=== PATIENT | female | born 1995 | race American Indian/Alaskan Native ===

== ENCOUNTER 2019-07-16 17:20 | Outpatient (CLI) | payer MEDICAID ==
[2019-07-16 17:35] VITALS: BP 125/74
[2019-07-16] MEDS ORDERED: LACTATED RINGERS 1,000 ML IV SCH (18:00)
[2019-07-16 18:55] LABS: Bilirubin,Urine Negative (Negative); Color,Urine Yellow (Yellow)
[2019-07-16 18:56] LABS: Blood,Urine Negative (Negative); Protein,Urine <15 mg/dL mg/dL (Negative)
[2019-07-16 18:57] LABS: Bacteria,Urine 1+ /HPF (Negative); Mucus,Urine FEW /HPF
[2019-07-16 19:09] LABS: Amphetamine Screen,Urine PRESUMPTIVE NEGATIVE; Benzodiazepines Screen,Urine PRESUMPTIVE NEGATIVE; Cannabinoid Screen,Urine PRESUMPTIVE POSITIVE; Cocaine Screen,Urine PRESUMPTIVE NEGATIVE; Methadone Screen,Urine PRESUMPTIVE NEGATIVE; Opiate Screen,Urine PRESUMPTIVE NEGATIVE
== END 2019-07-16 18:40 | disposition home or self-care (01) ==
LOC: TRG 17:20
PROVIDERS: ATTEND Obstetrics & Gynecology
DX: O47.02 False labor before 37 completed weeks of gestation, second trimester (principal); Z3A.12 12 weeks gestation of pregnancy
CPT/HCPCS: 80307; 81001

== ENCOUNTER 2021-09-18 15:11 | Outpatient (CLI) | payer MEDICAID ==
[2021-09-18] MEDS ORDERED: LACTATED RINGERS 1,000 ML IV ONE (15:48)
[2021-09-18 15:56] VITALS: BP 100/56
[2021-09-18 16:01] LABS: Bilirubin,Urine NEG (Negative); Blood,Urine NEG (Negative); Color,Urine Yellow (Yellow); Mucus,Urine FEW /HPF; Protein,Urine <15 mg/dL mg/dL (Negative); Urobilinogen,Urine < 2.0 mg/dL (<2.0)
[2021-09-18 16:10] LABS: Amphetamine Screen,Urine Negative; Benzodiazepines Screen,Urine Negative; Cocaine Screen,Urine Negative; Methadone Screen,Urine Negative; Opiate Screen,Urine Negative
[2021-09-18 16:49] LABS: Cannabinoid Screen,Urine Positive
== END 2021-09-18 17:22 | disposition home or self-care (01) ==
LOC: TRG 15:11 → APU 15:13 → TRG 17:22
PROVIDERS: ATTEND Obstetrics & Gynecology
DX: O26.892 Other specified pregnancy related conditions, second trimester (principal); R10.9 Unspecified abdominal pain; Z3A.21 21 weeks gestation of pregnancy
CPT/HCPCS: 80307; 81001

== ENCOUNTER 2021-12-21 16:33 | Outpatient (CLI) | payer MEDICAID ==
[2021-12-21 17:15] VITALS: BP 116/58
[2021-12-21] MEDS ORDERED: LACTATED RINGERS 500 ML IV ONE (18:24)
[2021-12-21 19:02] LABS: Bilirubin,Urine Negative (Negative); Blood,Urine Trace (Negative); Color,Urine Yellow (Yellow); Urobilinogen,Urine < 2.0 mg/dL (<2.0)
[2021-12-21 19:09] LABS: Bacteria,Urine 1+ /HPF (Negative); Mucus,Urine 2+ /HPF
== END 2021-12-21 19:45 | disposition home or self-care (01) ==
LOC: TRG 16:33 → APU 16:35 → TRG 19:39
PROVIDERS: ATTEND Obstetrics & Gynecology
DX: O47.03 False labor before 37 completed weeks of gestation, third trimester (principal); Z3A.35 35 weeks gestation of pregnancy
CPT/HCPCS: 36415; 81001; 84112

== ENCOUNTER 2022-01-17 07:51 | Inpatient (IN) | payer MEDICAID ==
[2022-01-17 08:55] LABS: Amphetamine Screen,Urine Negative; Benzodiazepines Screen,Urine Negative; Cannabinoid Screen,Urine Negative; Methadone Screen,Urine Negative; Opiate Screen,Urine Negative
[2022-01-17 09:08] LABS: Bacteria,Urine 1+ /HPF (Negative); Bilirubin,Urine NEG (Negative); Blood,Urine MOD (Negative); Color,Urine Yellow (Yellow); Urobilinogen,Urine < 2.0 mg/dL (<2.0)
[2022-01-17 09:18] LABS: Cocaine Screen,Urine Positive
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
[2022-01-17 09:59] LABS: Hematocrit 31.9 % (30.3-42.9); Hemoglobin 10.7 gm/dl (10.1-14.3); Mean Corpuscular HGB Conc 34 % (30-34); Mean Corpuscular Volume 97 fl (79-97); Platelet Count 209 K/mm3 (140-440); Red Blood Count 3.28 M/mm3 (3.65-5.03); Red Cell Distribution Width 13.7 % (13.2-15.2)
[2022-01-17] MEDS ORDERED: ONDANSETRON 4 MG/2 ML INJ IV PRN ×2 (10:00→15:47)
[2022-01-17] MEDS ORDERED: METHYLERGONOVINE MALEATE 0.2 MG/ML VIAL IM PRN (10:00)
[2022-01-17] MEDS ORDERED: PROMETHAZINE 25 MG TAB PO PRN ×2 (10:00→15:47)
[2022-01-17] MEDS ORDERED: PENICILLIN G POTASSIUM 5 MIL.UNITS in SODIUM CHLORIDE 0.9% 50 ML IV ONE (10:00)
[2022-01-17] MEDS ORDERED: LIDOCAINE (2%) 20 MG/1 ML VIAL 20 ML MDV INFILTRATI NR (10:00)
[2022-01-17] MEDS ORDERED: TERBUTALINE 1 MG/1 ML INJ SUB-Q PRN (10:00)
[2022-01-17] MEDS ORDERED: LACTATED RINGERS 1,000 ML IV SCH (10:00)
[2022-01-17] MEDS ORDERED: OXYTOCIN DRIP 30 UNITS/500 ML BAG IV SCH (10:00)
[2022-01-17] MEDS ORDERED: ACETAMINOPHEN 325 MG TAB PO PRN ×2 (10:00→15:47)
[2022-01-17] MEDS ORDERED: miSOPROStol 200 MCG TAB PR PRN (10:00)
[2022-01-17] MEDS ORDERED: ePHEDrine SULFATE 50 MG/1 ML INJ IV PRN ×2 (10:00→13:00)
[2022-01-17] MEDS ORDERED: BETAMET ACET/BETAMET NA PH 6 MG/ML INJ 5 ML MDV IM NR (10:00)
[2022-01-17] MEDS ORDERED: CARBOPROST TROMETHAMINE 250 MCG/1 ML INJ IM PRN (10:00)
[2022-01-17] MEDS ORDERED: OXYTOCIN 10 UNIT/1 ML INJ IM PRN (10:00)
[2022-01-17] MEDS ORDERED: LOPERAMIDE 2 MG CAP PO PRN (10:00)
[2022-01-17] MEDS ORDERED: NalbUPHINE 10 MG/1 ML INJ IV PRN (10:00)
[2022-01-17] MEDS ORDERED: fentaNYL 100 MCG/2 ML INJ IV PRN (10:00)
[2022-01-17] MEDS ORDERED: fentaNYL-BUPIV 2 MCG/ML-0.125% 200 MCG/100 ML BAG EPIDURAL SCH (13:00)
[2022-01-17] MEDS ORDERED: NALOXONE 2 MG/2 ML INJ IV PRN (13:00)
--- NOTE | 2022-01-17 13:30 | Anesthesia Consultation ---
Anesthesia Consult and Med Hx Date of service: 01/17/22 - Airway Anesthetic Teeth Evaluation: Poor ROM Head & Neck: Adequate Mental/Hyoid Distance: Adequate Mallampati Class: Class II Intubation Access Assessment: Probably Good - Pulmonary Exam CTA: Yes - Cardiac Exam Cardiac Exam: RRR - Pre-Operative Health Status ASA Pre-Surgery Classification: ASA3 Proposed Anesthetic Plan: Epidural - Pulmonary Hx Smoking: No Hx Asthma: No COPD: No Hx Pneumonia: No - Cardiovascular System Hx Hypertension: No - Central Nervous System Hx Seizures: No Hx Psychiatric Problems: No - Gastrointestinal Hx Gastroesophageal Reflux Disease: Yes - Endocrine Hx Renal Disease: No Hx End Stage Renal Disease: No Hx Hypothyroidism: No Hx Hyperthyroidism: No - Hematic Hx Anemia: Yes Hx Sickle Cell Disease: No - Other Systems Hx Alcohol Use: No Hx Substance Use: Yes (cocaine screening positive)
--- NOTE | 2022-01-17 13:32 | Progress Note ---
Labor Epidural - Labor Epidural Start Time: 12:50 Stop Time: 13:11 Performed by:: HUMBERTO ALARCON Procedure: Patient is requesting epidural for labor pain. H&P and labs reviewed. Procedure explained, questions answered, consent obtained. Patient placed in sitting position with monitors applied. Timeout performed immediately before start of procedure. Prep/drape in usual sterile fashion. Skin localized 3 mL 1% lidocaine at L[3]-L[4] interspace. 17-gauge Touhy epidural needle advanced to GREG with saline at [6] cm. No blood/CSF noted via epidural needle. Epidural catheter advanced to [10] cm. Negative aspiration for blood and CSF via catheter, negative response to test dose 3 ml 1.5% lidocaine w/ Epi. Sterile dressing applied followed by tape reinforcement. Patient tolerated procedure well. No immediate complications noted.
--- NOTE | 2022-01-17 13:40 | Procedure Note ---
OB Delivery Note - Delivery Date of Delivery: 01/17/22 Surgeon: NINO WANG Estimated blood loss: 100cc - Vaginal Delivery presentation: vertex Delivery position: OP Intrapartum events: labor-<37 weeks, PROM->1hr before delivery, precipitous labor- <3hr, mult.variable deceleratio Delivery monitor: external FHT, external uterine Route of delivery: Delivery placenta: spontaneous Delivery cord: 3 umbilical vessels Episiotomy: none Delivery laceration: 1st degree (to bilateral labia) Delivery repair: chromic Anesthesia: epidural Delivery comments: Nurse called me with pelvic unchanged and order given to get epidural. When I entered the room pt receiving epidural and after pt layed flat, I repeated pelvic exam and same with cervix complete, 100% and +3 station. Pt instructed to push and pt given oxygen via face mask. NICU called for delivery. Successful of viable male infant; spontaneous delivery of intact placenta with 3vessel cord. Sustained 1st degree laceration to left and right labia and same repaired with 2-0 chromic continuously with epidural in progress and with good effect. Bimanual with fundus firm. SSE showed no cervical or vaginal laceration. NICU team notified by me that pt was positive for cocaine. - Infant A at 1 minute: 8 at 5 minutes: 9 Infant Gender: Male (slimy clear amniotic fluid, normal wbc on labs; wt 2540g)
[2022-01-17] MEDS ORDERED: IBUPROFEN 800 MG TAB PO ONE (13:45)
[2022-01-17] MEDS ORDERED: PROMETHAZINE 25 MG RECT SUPP PR PRN (15:47)
[2022-01-17] MEDS ORDERED: diphenhydrAMINE 25 MG CAP PO PRN (15:47)
[2022-01-17] MEDS ORDERED: LANOLIN/ZINC/DIMETHICONE (LANSINOH) 7 GM TP PRN (15:47)
[2022-01-17] MEDS ORDERED: MAGNESIUM HYDROXIDE (MOM) ORAL LIQD UDC PO PRN (15:47)
[2022-01-17] MEDS ORDERED: oxyCODONE /ACETAMINOPHEN 5-325MG TAB PO PRN (15:47)
[2022-01-17] MEDS ORDERED: BENZOCAINE/MENTHOL 20/0.5% TOP SPRAY 56 GM TP PRN (15:47)
[2022-01-17] MEDS ORDERED: WITCH HAZEL/ GLYCERIN PAD TP PRN (15:47)
--- NOTE | 2022-01-17 16:21 | Ultrasound Report ---
ULTRASOUND OBSTETRIC INDICATION / CLINICAL INFORMATION: PREVIOUS C/SECTION, - GESTATIONAL AGE. TECHNIQUE: Transabdominal. COMPARISON: None available. FINDINGS: There is a single intrauterine . Biparietal Diameter = 8.5 cm = 34.1 weeks.days Head Circumference = 31.2 cm = 35.0 weeks.days Abdominal Circumference = 31.2 cm = 35.1 weeks.days Femur Length = 6.7 cm = 34.3 weeks.days Average Ultrasound Age (AUA) = 34.5 weeks.days Heart Rate: 122 beats per minute. Estimated Weight in grams (if calculated): 2523 Estimated Weight Growth Percentile (if calculated): 2 Position: cephalic. Amniotic Fluid Volume: normal Amniotic Fluid Index (ARMAAN) in cm (if calculated): 13.3. Maternal Adnexa: No significant abnormality. IMPRESSION: 1. Single, living intrauterine with estimated sonographic age of 34.5 weeks.days 2. No significant sonographic abnormality. Signer Name: David Stallworth MD Signed: 01/17/2022 4:16 PM Workstation Name: [id number]
[2022-01-17] MEDS ORDERED: MINERAL OIL 30 ML ORAL LIQD PO PRN (22:00)
[2022-01-17] MEDS: IBUPROFEN 800 MG TAB PO SCH (22:02)
[2022-01-17] MEDS: DOCUSATE SODIUM 100 MG CAP PO SCH (22:02)
[2022-01-17 23:55] LABS: Hepatitis C Virus Antibody Non-Reactive (NonReactive)
[2022-01-18 02:23] LABS: Hematocrit 31.2 % (30.3-42.9); Hemoglobin 10.5 gm/dl (10.1-14.3)
[2022-01-18] MEDS: IBUPROFEN 800 MG TAB PO SCH ×3 (05:44→21:30)
--- NOTE | 2022-01-18 09:01 | Post Anesthesia Evaluation ---
- Post Anesthesia Evaluation Patient Participated: Yes Airway Patent: Yes Stable Respiratory Function: Yes Nausea/Vomiting: No Temp > 96.8F: Yes Pain Manageable: Yes Adequeate Hydration: Yes Anesthesia Complications: No Block Receding Appropriately: Yes Patient on Ventilator: No
--- NOTE | 2022-01-18 10:40 | Progress Note ---
Assessment and Plan A: PP Day #1 Stable +UDS P: Follow Routine Orders Ammonia Solution Preparer Consult Subjective - Subjective Date of service: 01/18/22 Patient reports: appetite normal, voiding normally, pain well controlled, flatus, ambulating normally Mina: in NICU, bottle feeding Objective - Vital Signs Latest vital signs: Vital Signs Temp Pulse Resp BP BP Pulse Ox Pulse Ox 01/18/22 08:05 100 01/18/22 08:03 97.9 F 65 16 113/72 100 01/18/22 06:44 18 01/18/22 05:44 18 01/18/22 01:18 98.2 F 71 20 128/68 100 01/17/22 23:02 18 01/17/22 22:02 18 01/17/22 22:00 98.0 F 68 20 104/76 100 01/17/22 20:20 100 01/17/22 15:15 97.5 F L 61 14 123/73 99 99 01/17/22 14:23 55 L 100 01/17/22 14:18 55 L 100 01/17/22 14:14 53 L 121/71 01/17/22 14:13 59 L 100 01/17/22 14:08 66 99 01/17/22 14:03 61 99 01/17/22 13:59 63 117/58 01/17/22 13:58 61 99 01/17/22 13:53 58 L 100 01/17/22 13:48 80 100 01/17/22 13:45 72 119/59 01/17/22 13:43 67 100 01/17/22 13:38 59 L 100 01/17/22 13:33 68 100 01/17/22 13:32 97.5 F L 63 20 92 01/17/22 13:29 87 116/74 01/17/22 13:28 70 100 01/17/22 13:23 77 100 01/17/22 13:18 62 100 01/17/22 13:13 75 110/55 100 01/17/22 13:12 93 H 108/72 01/17/22 13:11 63 88 01/17/22 13:09 77 109/53 01/17/22 13:08 67 100 01/17/22 13:04 77 131/60 01/17/22 13:03 71 100 01/17/22 13:01 85 115/60 01/17/22 12:59 76 143/62 01/17/22 12:58 80 100 01/17/22 12:53 75 100 01/17/22 12:52 71 90 01/17/22 12:48 82 100 01/17/22 12:47 77 139/79 01/17/22 12:45 85 92 01/17/22 12:43 84 100 01/17/22 12:38 87 100 01/17/22 12:32 73 100 01/17/22 12:27 77 100 01/17/22 12:22 89 100 01/17/22 12:17 79 100 01/17/22 12:12 67 100 01/17/22 12:07 85 100 01/17/22 12:02 76 99 01/17/22 11:57 78 100 01/17/22 11:52 84 99 01/17/22 11:49 98.6 F 20 01/17/22 11:47 65 102/55 100 01/17/22 11:42 69 100 01/17/22 11:40 100 01/17/22 11:37 73 99 01/17/22 11:32 67 100 01/17/22 11:27 73 100 01/17/22 11:22 77 100 01/17/22 11:17 73 100 01/17/22 11:12 71 100 01/17/22 11:07 67 100 Intake and Output 01/17/22 01/18/22 01/18/22 22:59 06:59 14:59 Intake Total 720 360 Output Total 1400 Balance -680 360 Intake: Oral 720 Intake, Free Water 360 Output: Urine 1400 Indwelling Catheter 900 Void 500 Other: Total, Intake Amount 480 Total, Output Amount 200 - Exam Breasts: Present: normal Cardiovascular: Present: Regular rate Lungs: Present: Clear to auscultation, Normal air movement Abdomen: Present: normal appearance, soft, normal bowel sounds Uterus: Present: normal, firm, fundal height below umbilicus Extremities: Present: normal
[2022-01-18] MEDS: DOCUSATE SODIUM 100 MG CAP PO SCH ×2 (12:20→21:31)
[2022-01-18] MEDS: PRENATAL VIT27-FE FUMARATE-FOLIC ACID VIT TAB PO SCH (12:20)
[2022-01-18 12:53] LABS: Amphetamine Screen,Urine Negative; Benzodiazepines Screen,Urine Negative; Cocaine Screen,Urine Negative; Methadone Screen,Urine Negative; Opiate Screen,Urine Negative
[2022-01-18 13:12] LABS: Cannabinoid Screen,Urine Positive
[2022-01-18] MEDS ORDERED: MEASLES, MUMPS & RUBELLA 12,500 UNIT/0.5 ML VACCINE SUB-Q ONE (13:41)
[2022-01-18] MEDS ORDERED: TETANUS,DIPH,PERTUSS(ACELL) VACCINE 0.5 ML SYRINGE IM ONE (13:48)
[2022-01-19] MEDS: IBUPROFEN 800 MG TAB PO SCH ×3 (05:25→18:22)
[2022-01-19] MEDS: DOCUSATE SODIUM 100 MG CAP PO SCH ×2 (09:45→22:43)
[2022-01-19] MEDS: PRENATAL VIT27-FE FUMARATE-FOLIC ACID VIT TAB PO SCH (09:45)
[2022-01-19] MEDS: FERROUS SULFATE 325 MG TAB PO SCH ×2 (09:45→22:02)
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
[2022-01-19] MEDS: SERTRALINE 25 MG TAB PO SCH (16:15)
[2022-01-19] MEDS ORDERED: traZODone 50 MG TAB PO SCH (22:00)
[2022-01-20] MEDS: IBUPROFEN 800 MG TAB PO SCH ×2 (01:29→06:47)
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
[2022-01-20] MEDS: SERTRALINE 25 MG TAB PO SCH (10:18)
[2022-01-20] MEDS: FERROUS SULFATE 325 MG TAB PO SCH (10:18)
[2022-01-20] MEDS: DOCUSATE SODIUM 100 MG CAP PO SCH (10:18)
[2022-01-20] MEDS: PRENATAL VIT27-FE FUMARATE-FOLIC ACID VIT TAB PO SCH (10:18)
[2022-01-20 13:26] VITALS: BP 121/72
[2022-01-22 19:11] LABS: HIV-1 RNA QN PCR Not Detected Copies/mL; HIV-1 RNA QN PCR Not Detected Log cps/mL
== END 2022-01-20 13:00 | disposition home or self-care (01) | DRG 775 ==
LOC: TRG 07:51 → APU 07:53 → UNDOADMOB 09:40 → LD 09:40 → TRG 12:51 → INTOOBSV 13:40 → OBSVTOIN 13:40 → LD 15:19 → OB 15:19 → LD 15:47 → OBSVTOIN 15:47 → OB 15:47
PROVIDERS: ADMIT Obstetrics & Gynecology; ATTEND Obstetrics & Gynecology
PROC: 10E0XZZ Delivery of Products of Conception, External Approach (ICD-10-PCS; principal; 2022-01-17)
PROC: 3E0R3BZ Introduction of Anesthetic Agent into Spinal Canal, Percutaneous Approach (ICD-10-PCS; 2022-01-17)
PROC: 00HU33Z Insertion of Infusion Device into Spinal Canal, Percutaneous Approach (ICD-10-PCS; 2022-01-17)
PROC: 0HQ9XZZ Repair Perineum Skin, External Approach (ICD-10-PCS; 2022-01-17)
PROC: 3E0234Z Introduction of Serum, Toxoid and Vaccine into Muscle, Percutaneous Approach (ICD-10-PCS; 2022-01-18)
PROC: 0UQMXZZ Repair Vulva, External Approach (ICD-10-PCS; 2022-01-18)
DX: O42.013 Preterm premature rupture of membranes, onset of labor within 24 hours of rupture, third trimester (principal); O76 Abnormality in fetal heart rate and rhythm complicating labor and delivery; O34.211 Maternal care for low transverse scar from previous cesarean delivery; O99.824 Streptococcus B carrier state complicating childbirth; O60.14X0 Preterm labor third trimester with preterm delivery third trimester, not applicable or unspecified; O99.62 Diseases of the digestive system complicating childbirth; K21.9 Gastro-esophageal reflux disease without esophagitis; O62.3 Precipitate labor; O70.0 First degree perineal laceration during delivery; O90.81 Anemia of the puerperium; O99.345 Other mental disorders complicating the puerperium; F53.0 Postpartum depression; O99.324 Drug use complicating childbirth; F14.90 Cocaine use, unspecified, uncomplicated; F12.90 Cannabis use, unspecified, uncomplicated; F41.1 Generalized anxiety disorder; Z20.822 Contact with and (suspected) exposure to COVID-19; Z37.0 Single live birth; Z3A.35 35 weeks gestation of pregnancy; Z23 Encounter for immunization
CPT/HCPCS: 36415; 76816; 80307; 81001; 84112; 85014; 85018; 85027; 86592; 86706; 86762; 86803; 86850; 86900; 86901; 87086; 87536; 87806; 99211; G0378; G0463; J0702; J2540; J2590; J7120; U0003